=== PATIENT | male | born 1940 | race Caucasian/White ===

== ENCOUNTER 2016-10-04 08:50 | Day surgery (SDC) | payer OTHER ==
[~2016-10-04] VITALS: Ht 182.9 cm; Wt 98.8 kg
[~2016-10-04 08:50] MED LIST: GLUCOPHAGE1000 MG PO; LANTUS 10100 UNITS/ SC; LIPITOR20 MG PO; LITE COAT ASPI325 M1 PO; MULTI-DAY VITA1 EACH PO; NEXIUM40 MG PO; TENORMIN25 MG PO; VITAMIN C1000 MG PO; VITAMIN D2000 UNI1 PO; ZESTRIL5 MG PO
[2016-10-04 09:47] LABS: INTER. NORMALIZED RATIO 1.2
[2016-10-04 09:51] LABS: BASOPHIL COUNT 0.1 K/uL (0-0.1); EOSINOPHIL (%) 3.3 % (0-5); EOSINOPHIL COUNT 0.2 K/uL (0-0.3); HEMATOCRIT 41.7 % (38.0-50.0); IMMATURE GRANULOCYTE (%) 0.4 % (0.0-0.7); INSTRUMENT ABS NEUTROPHIL CT 1.7 K/uL; LYMPHOCYTE COUNT 2.8 K/uL (1.0-2.8); MCH 29.9 PG (29.0-34.0); MCHC 32.9 G/DL (30.0-36.0); MEAN PLAT.VOLUME 10.6 uM^3 (9.0-12.4); MONOCYTE (%) 9.6 % (3-12); MONOCYTE COUNT 0.5 K/uL (0-0.8); NEUTROPHIL COUNT 1.7 K/uL (1.8-6.4); PLATELET COUNT 183 K/uL (156-360); RBC DIS.WIDTH-CV 13.9 % (11.8-14.6); RBC DIS.WIDTH-SD 46.6 % (39-53); RED BLOOD COUNT 4.58 M/uL (4.00-5.50); WHITE BLOOD COUNT 5.2 K/uL (4.1-10.2)
[2016-10-04 10:02] VITALS: BP 132/73
[2016-10-04 10:23] LABS: ALKALINE PHOSPHATASE 54 IU/L (3-129); ANION GAP 10 MEQ/L (2-14); CHLORIDE 106 MEQ/L (99-109); GFR ESTIMATE (CALCULATED) > 59 mL/min/; GLUCOSE 143 mg/dL (70-99); POTASSIUM 4.1 MEQ/L (3.7-5.4); SAMPLE HEMOLYSIS CHECK 0; SAMPLE ICTERIC CHECK 0; SAMPLE LIPEMIA CHECK 0; SODIUM 138 MEQ/L (136-147); TOTAL BILIRUBIN 0.8 MG/DL (0.0-1.0); UREA NITROGEN (BUN) 21 mg/dL (9-23)
[2016-10-04 11:41] LABS: POINT-OF-CARE METER ID UU13113675
[2016-10-04] MEDS ORDERED: COLACE100 MG PO (12:07)
[2016-10-04] MEDS ORDERED: METAMUCIL POWD798 GM PO (12:07)
[2016-10-04] MEDS ORDERED: HYDROCODON-ACE1 EAC7 PO (12:07)
[2016-10-04 12:25] VITALS: BP 127/57
[2016-10-04 13:06] VITALS: BP 147/65
== END 2016-10-04 13:22 | disposition home or self-care (01) ==
LOC: SDC 08:50
PROVIDERS: Thoracic Surgery (Cardiothoracic Vascular Surgery)
PROC: 0DBQ7ZZ Excision of Anus, Via Natural or Artificial Opening (ICD-10-PCS; principal; 2016-10-04)
DX: K60.3 Anal fistula (principal); E11.9 Type 2 diabetes mellitus without complications; E78.5 Hyperlipidemia, unspecified; I10 Essential (primary) hypertension; I25.10 Atherosclerotic heart disease of native coronary artery without angina pectoris; K21.9 Gastro-esophageal reflux disease without esophagitis; I25.2 Old myocardial infarction; Z95.1 Presence of aortocoronary bypass graft; M19.90 Unspecified osteoarthritis, unspecified site; Z85.828 Personal history of other malignant neoplasm of skin; Z87.891 Personal history of nicotine dependence; Z80.8 Family history of malignant neoplasm of other organs or systems; Z80.52 Family history of malignant neoplasm of bladder; Z82.3 Family history of stroke
CPT/HCPCS: 80053; 82948; 85025; 85610; 93005; J0330; J0690; J2250; J2405; J2765; J3010

== ENCOUNTER → 2016-11-20 | Outpatient (CLI) | payer OTHER ==
[~2016-11-20] VITALS: Ht 182.9 cm; Wt 106.1 kg
[~2016-11-20] MED LIST changes: +COLACE100 MG PO; +HYDROCODON-ACE1 EAC7 PO; +METAMUCIL POWD798 GM PO
[2016-11-20 11:28] LABS: POINT-OF-CARE METER ID UU13113694
== END | disposition home or self-care (01) ==
LOC: AMB 10:43
PROVIDERS: Internal Medicine Gastroenterology
PROC: 3E0G8GC Introduction of Other Therapeutic Substance into Upper GI, Via Natural or Artificial Opening Endoscopic (ICD-10-PCS; principal; 2016-11-20)
DX: K22.0 Achalasia of cardia (principal); I10 Essential (primary) hypertension; E11.9 Type 2 diabetes mellitus without complications; K21.9 Gastro-esophageal reflux disease without esophagitis; E78.5 Hyperlipidemia, unspecified; I25.2 Old myocardial infarction; Z87.891 Personal history of nicotine dependence; Z79.4 Long term (current) use of insulin; Z79.84 Long term (current) use of oral hypoglycemic drugs; Z79.82 Long term (current) use of aspirin; Z95.1 Presence of aortocoronary bypass graft
CPT/HCPCS: 82948; J0585